=== PATIENT | male | born 1995 | race Caucasian/White ===

== ENCOUNTER 2017-01-30 19:08 | Emergency (ER) | payer SELFPAY ==
[2017-01-30] MEDS ORDERED: 0.9 % SODIUM CHLORIDE 1,000 ML BAG IV ONE (19:22)
--- NOTE | 2017-01-30 19:26 | Emergency Department Record ---
History of Present Illness - General Chief Complaint: Seizures Time Seen by Provider: 01/30/17 19:18 Source: Family (Signifcant other/friend) Mode of Arrival: Ambulatory Limitations: No limitations - History of Present Illness Initial Comments: 21 yo male presents to ED via private car for "unresponsiveness" and "shaking". Significant other reports that the patient had been drinking alcohol this evening, they were involved in a verbal altercation when the patient's symptoms began 1 hours ago. SO reports symptoms have been intermittent since that time. 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 MD Complaint: Possible seizure Onset/Timin -: Hour(s) Description of Episode: Bladder incontinence Witnessed: Yes - by bystander Trauma: No Seizure History: None Place: Home Possible Precipitating Event: Stress Treatments Prior to Arrival: None - Related Data Allergies Allergy/AdvReac Type Severity Reaction Status Date / Time Unable to Assess Allergy Unverified 01/30/17 19:17 Travel Screening - Travel/Exposure Within Last 30 Days Have you traveled within the last 30 days?: No - Travel/Exposure Within Last Year Have you traveled outside the [place] in the last year?: No - Additonal Travel Details Have you been exposed to anyone with a communicable illness?: No - Travel Symptoms Symptom Screening: None Review of Systems ROS unobtainable: Due to mental status Past Medical History - SOCIAL HISTORY Smoking Status: Unknown if ever smoked Family Medical History Any Significant Family History?: No Physical Exam - General General Appearance: Other (patient has GCS of 3 currently, will not respond to verbal stimuli, does exhibit purposeful eye movments on examination) Limitations: Altered mental status - Head Head exam: Atraumatic, Normocephalic, Normal inspection Head exam detail: negative: Abrasion, Contusion, Atkinson's sign, General tenderness, Hematoma, Laceration - Eye Eye exam: Normal appearance. negative: Conjunctival injection, Periorbital swelling, Periorbital tenderness, Scleral icterus - ENT Ear exam: negative: Auricular hematoma, Auricular trauma Nasal Exam: negative: Active bleeding, Discharge, Dried blood, Foreign body Mouth exam: negative: Drooling, Laceration, Muffled voice, Tongue elevation - Neck Neck exam: Normal inspection. negative: Meningismus, Tenderness - Respiratory Respiratory exam: Normal lung sounds bilaterally. negative: Respiratory distress, Rhonchi, Stridor, Wheezes - Cardiovascular Cardiovascular Exam: Regular rate, Normal rhythm, Normal heart sounds - GI/Abdominal GI/Abdominal exam: Soft. negative: Distended, Rebound, Rigid, Tenderness - Rectal Rectal exam: Deferred - exam: Deferred - Extremities Extremities exam: Normal inspection. negative: Pedal edema, Tenderness - Back Back exam: Denies: Rash noted - Psychiatric Psychiatric exam: Normal affect, Normal mood - Skin Skin exam: Normal color. negative: Abrasion Type of lesion: negative: abrasion Course Vital Signs 01/30/17 19:10 Pulse Rate 110 H Respiratory 16 Rate Blood Pressure 135/82 Pulse Ox 97 - Reevaluation(s) Reevaluation #1: 01/30/17 19:24 Accu check 106 EKG: NSR 98 Normal axis, normal intervals Early repolarization, no acute ST-T wave changes Reevaluation #2: 01/30/17 20:03 Labs reviewed and are grossly unremarkable for an acute process. UDS and Alcohol are pending. Reevaluation #3: 01/30/17 20:05 CT Brain: Nothing acute Patient reassessed and is resting comfortably at this time. Will continue to monitor. Reevaluation #4: 01/30/17 21:23 Patient removed his own IV, swearing at staff, refuses to wait for discharge instructions, and eloped from the department with his significant other. Patient ambulated with steady gait, yelling "I'm getting the fuck out here". Medical Decision Making - Lab Data Result diagrams: 01/30/17 19:10 01/30/17 19:10 Disposition Disposition: Other (eloped) Disposition: Home, Self-Care Condition: (2) Stable Forms: Patient Portal Access Time of Disposition: 21:24
[2017-01-30 19:31] LABS: HEMATOCRIT 43.2 % (42.0-52.0); HEMOGLOBIN 14.1 gm/dl (14.0-18.0); MEAN CELL VOLUME 82.9 fl (81-97); MEAN CORPUSCULAR HEMOGLOBIN 27.1 pg (27-33); MEAN CORPUSCULAR HGB CONC 32.6 g/dl (32-36); MEAN PLATELET VOLUME 9.3 fl (7.4-10.4); PLATELET COUNT 276 K/uL (130-400); RED BLOOD COUNT 5.21 M/uL (4.40-5.70); RED CELL DISTRIBUTION WIDTH 13.4 % (11.5-14.5); WHITE BLOOD COUNT W/O DIFF 10.7 K/uL (4.2-12.2)
[2017-01-30 19:41] LABS: ALB/GLOB RATIO 1.4 (1.1-1.8); ALBUMIN 4.3 gm/dL (3.5-5.0); ALKALINE PHOSPHATASE 72 U/L (38-126); ALT/SGPT 27 U/L (21-72); ANION GAP 13.7 (7-16); AST/SGOT 20 U/L (17-59); BILIRUBIN,TOTAL 0.61 mg/dL (0.2-1.3); BLOOD UREA NITROGEN 11 mg/dL (9-20); CARBON DIOXIDE 25.3 mmol/L (22-30); CREATININE 0.8 mg/dL (0.66-1.25); EST GLOMERULAR FILTRATION RATE > 60 ml/min; GLUCOSE,RANDOM 108 mg/dL (70-110); INR 0.94; PROTHROMBIN TIME (PATIENT) 10.6 SECONDS (9.5-12.1); TOTAL PROTEIN 7.4 gm/dL (6.3-8.2)
[2017-01-30 20:03] LABS: ALCOHOL 0.179 g/dL (0-0.010)
== END 2017-01-30 21:43 | disposition home or self-care (01) ==
LOC: ER 19:08
DX: G40.909 Epilepsy, unspecified, not intractable, without status epilepticus (principal); R32 Unspecified urinary incontinence; F10.10 Alcohol abuse, uncomplicated; Y90.6 Blood alcohol level of 120-199 mg/100 ml; Z79.899 Other long term (current) drug therapy
CPT/HCPCS: 99284 ×2; 82550; 85610; 80053; 36416; 82948; 85027; 70450; 93005; 93010; G0480; 80320; J7030

== ENCOUNTER 2017-07-15 08:21 | Emergency (ER) | payer SELFPAY ==
--- NOTE | 2017-07-15 08:37 | Emergency Department Record ---
History of Present Illness - General Chief Complaint: Laceration(s) Stated Complaint: FACIAL LACERATION LEFT CHEEK Time Seen by Provider: 07/15/17 08:36 Source: Patient Mode of Arrival: Ambulatory Limitations: No limitations - History of Present Illness Initial Commments: The patient states he fell on a broken glass about 45 minutes ago and sustained a laceration to the L maxillo-facial area. The area around the laceration is slightly numb and he also feels a laceration to the back of the mouth. His Td is UTD. The patient denies any FB sensation or being assaulted. Onset/Timin -: Minutes(s) Location: Face Place: Home Context: Accidental Associated Symptoms: Suspect foreign body present - Lanre Coma Scale Eye Response: (4) Open spontaneously Motor Response: (6) Obeys commands Verbal Response: (5) Oriented Lanre Total: 15 - Related Data Hx Tetanus Toxoid Vaccination: No (unknown) Patient Tetanus UTD (within 5 yrs): No (unknown) Previous Rx's Medication Instructions Recorded Cephalexin [Keflex] 500 mg PO QID #28 cap 07/15/17 Allergies Allergy/AdvReac Type Severity Reaction Status Date / Time No Known Drug Allergies Allergy Verified 07/15/17 08:35 Travel Screening - Travel/Exposure Within Last 30 Days Have you traveled within the last 30 days?: No - Travel/Exposure Within Last Year Have you traveled outside the [place] in the last year?: No - Additonal Travel Details Have you been exposed to anyone with a communicable illness?: No - Travel Symptoms Symptom Screening: None Review of Systems Constitutional: Denies: Chills, Fever Eyes: Denies: Eye discharge ENT: Denies: Congestion, Other Respiratory: Denies: Cough, Dyspnea Past Medical History - SOCIAL HISTORY Smoking Status: Current every day smoker Alcohol Use: None Drug Use: Occasional Drug Use Detail:: Marijuana - RESPIRATORY Hx Respiratory Disorders: No - CARDIOVASCULAR Hx Cardio Disorders: No - NEURO Hx Neuro Disorders: No - GI Hx GI Disorders: No - Hx Genitourinary Disorders: No - ENDOCRINE Hx Endocrine Disorders: No - MUSCULOSKELETAL Hx Musculoskeletal Disorders: No - PSYCH Hx Psych Problems: No - HEMATOLOGY/ONCOLOGY Hx Hematology/Oncology Disorders: No Family Medical History Any Significant Family History?: No Physical Exam - General General Appearance: Alert, Oriented x3, Cooperative - Head Head exam: Atraumatic, Normocephalic Image of Face/Head: 1 - C-shaped laceration. Total 2 cm. - Eye Eye exam: Normal appearance, PERRL, EOMI - ENT ENT exam: Other (There is a large facial laceration to the L maxilla area.). negative: Normal exam Teeth exam: Normal inspection, Other (There does appear to be a laceration just behind the L upper molars. It is very difficult to visualize due to the location.) Throat exam: Normal inspection. negative: Tonsillar erythema, Tonsillar exudate Image of Mouth/Teeth: 1 - Location of intra-oral abrasion. It appears he bit the side of his mouth. - Neck Neck exam: Normal inspection, Full ROM. negative: Tenderness Course Vital Signs 07/15/17 08:28 Temperature 98.2 F Pulse Rate 96 H Respiratory 12 Rate Blood Pressure 121/73 Pulse Ox 98 - Reevaluation(s) Reevaluation #1: Procedure note: The L facial laceration was anesth. with 3 CC's Lido 1% with Epi. The wound was prepped with betadine and lavaged with sterile saline. No FB was seen on exploration. The lac was closed with 1 deep Vicryl 5.0 stitch and 7 5.0 nylon skin sutures. 07/15/17 09:51 Reevaluation #2: The patient is doing very well at this time. He is up walking and is not longer bleeding or in pain. I did explain the need to watch for infection, have the sutures removed in 7 days, and to see a plastic surgeon due to the facial numbness around the lac. 07/15/17 10:15 Medical Decision Making - Data Complexity MDM Data: X-Ray Ordered and/or Reviewed - Radiology Data Radiology results: Report reviewed (Facial CT: Soft tissue lac L max area with air extending to the buccinator.) Disposition Disposition: Discharge Clinical Impression: Laceration of face Qualifiers: Encounter type: initial encounter Qualified Code(s): S01.81XA - Laceration without foreign body of other part of head, initial encounter Disposition: Home, Self-Care Condition: (1) Good Instructions: Laceration (ED) Additional Instructions: Take the Keflex as directed. Keep dry for 2 days then no soaking or swimming. Have the sutures removed in 7 days. Please see a plastic surgeon due to the facial numbness. Prescriptions: Cephalexin [Keflex] 500 mg PO QID #28 cap Forms: Patient Portal Access Time of Disposition: 10:18 Quality - Quality Measures Quality Measures: N/A - Blood Pressure Screening View Details: Yes Does Patient Have Any of the Following: No Blood Pressure Classification: Pre-Hypertensive BP Reading Systolic Measurement: 121 Diastolic Measurement: 73 Screening for High Blood Pressure: < Pre-Hypertensive BP, F/U Documented > [ G8950] Pre-Hypertensive Follow-up Interventions: Referral to alternative/primary care provider.
[2017-07-15] MEDS ORDERED: Diph,Pert(Acell),Tet Vac 0.5 ML SYR IM ONE (08:46)
[2017-07-15] MEDS ORDERED: CEPHALEXIN 500 MG CAPSULE PO STA (09:48)
--- NOTE | 2017-07-17 11:26 | CT SCAN REPORT ---
EXAM: CT SCAN MAXILLOFACIAL WO CONTRAST HISTORY: LACERATION LEFT CHEEK WITH BROKEN DRINKING GLASS. COMPARISON: Head CT 01/30/17. TECHNIQUE: Contiguous axial images from the skull base to the mental protuberance were obtained without contrast. Sagittal and coronal two- dimensional reformatted images were obtained for better anatomic delineation. FINDINGS: There is soft tissue gas in the left premaxillary soft tissues with laceration lateral to the nasal canthal fold. Soft tissue gas extends along the left buccinator muscle. No radiodense foreign body. Orbits are intact. Zygomatic arches, torres of the maxillary antra, nasal bones, and mandible are intact. Globes are normal. IMPRESSION: LEFT FACIAL LACERATION BEGINNING LATERAL TO THE LEFT NASAL LABIAL FOLD. SOFT TISSUE GAS TRACKS ALONG THE LEFT PREMAXILLARY SOFT TISSUES AND ALONG THE LEFT BUCCINATOR MUSCLE. NO RADIODENSE FOREIGN BODY. JOB NUMBER: [id number] MTDD
== END 2017-07-15 10:31 | disposition home or self-care (01) ==
LOC: ER 08:21
DX: S01.412A Laceration without foreign body of left cheek and temporomandibular area, initial encounter (principal); W01.110A Fall on same level from slipping, tripping and stumbling with subsequent striking against sharp glass, initial encounter; Y92.009 Unspecified place in unspecified non-institutional (private) residence as the place of occurrence of the external cause
CPT/HCPCS: 12051; 70486; 90715; 96372; 99283; 99284

== ENCOUNTER 2017-07-26 11:22 | Emergency (ER) | payer SELFPAY ==
--- NOTE | 2017-07-26 11:41 | Emergency Department Record ---
History of Present Illness - General Chief Complaint: Suture removal Stated Complaint: STITCHES OUT Time Seen by Provider: 07/26/17 11:31 Source: Patient Mode of arrival: Ambulatory Limitations: No limitations - History of Present Illness Initial Comments: The patient is here for suture removal. He has sutures placed in his L facial area 11 days ago. He denies any new problems or issues. Complaint: Suture/staple removal Onset/Timin -: Days(s) Initial Visit For: Laceration Returns Today for: Staple/stitch removal Symptoms Since Prior Visit: No new symptoms Associated Symptoms: None - Related Data Previous Rx's Medication Instructions Recorded Cephalexin [Keflex] 500 mg PO QID #28 cap 07/15/17 Allergies Allergy/AdvReac Type Severity Reaction Status Date / Time No Known Drug Allergies Allergy Verified 07/26/17 11:35 Travel Screening - Travel/Exposure Within Last 30 Days Have you traveled within the last 30 days?: No Past Medical History - SOCIAL HISTORY Smoking Status: Current every day smoker Alcohol Use: None Drug Use: None - RESPIRATORY Hx Respiratory Disorders: No - CARDIOVASCULAR Hx Cardio Disorders: No - NEURO Hx Neuro Disorders: No - GI Hx GI Disorders: No - Hx Genitourinary Disorders: No - ENDOCRINE Hx Endocrine Disorders: No - MUSCULOSKELETAL Hx Musculoskeletal Disorders: No - PSYCH Hx Psych Problems: No - HEMATOLOGY/ONCOLOGY Hx Hematology/Oncology Disorders: No Family Medical History Any Significant Family History?: No Physical Exam - General General Appearance: Alert, Cooperative, No acute distress - Head Head exam: Atraumatic, Normocephalic - Eye Eye exam: Normal appearance, PERRL - ENT ENT exam: negative: Normal exam (The L maxillary area lac was very well healed. All 7 sutures were removed with no difficulty.) Course Vital Signs 07/26/17 11:32 Temperature 98.4 F Pulse Rate 101 H Respiratory 20 Rate Blood Pressure 116/62 Pulse Ox 97 Disposition Disposition: Discharge Clinical Impression: Encounter for removal of sutures Disposition: Home, Self-Care Condition: (1) Good Instructions: Stitches Removal (ED) Additional Instructions: Please see your PCP for any problems and return to the ER for any new issues. Forms: Patient Portal Access Time of Disposition: 11:54 Quality - Quality Measures Quality Measures: N/A - Blood Pressure Screening View Details: Yes Does Patient Have Any of the Following: No Blood Pressure Classification: Normal BP Reading Systolic Measurement: 116 Diastolic Measurement: 62 Screening for High Blood Pressure: < Normal BP, F/U Not Required > [G8740]
== END 2017-07-26 12:13 | disposition home or self-care (01) ==
LOC: ER 11:22
DX: Z48.02 Encounter for removal of sutures (principal)